=== PATIENT | male | born 1975 | race African-American/Black ===

== ENCOUNTER 2017-05-13 14:23 | Emergency (ER) | payer SELFPAY ==
--- NOTE | 2017-05-13 15:34 | ER Document Report ---
HPI - HPI Patient complains to provider of: diarrhea and nausea Onset: Yesterday Onset/Duration: Gradual, Better Pain Level: 4 Context: 41-year-old male complaining of diarrhea yesterday and 3-4 per day. He did take Imodium yesterday and today and there is more consistencies of stool. No abdominal pain. Mild nausea without vomiting. No fever or chills. Wants a referral to gastroenterology. He also needs a work excuse. Associated Symptoms: None Exacerbated by: Denies Relieved by: Denies Similar symptoms previously: No Recently seen / treated by doctor: No - ROS ROS below otherwise negative: Yes Systems Reviewed and Negative: Yes All other systems reviewed and negative Past Medical History - General Information source: Patient - Social History Smoking Status: Current Every Day Smoker Frequency of alcohol use: None Drug Abuse: None Lives with: Family Family History: Reviewed & Not Pertinent - Medical History Medical History: Negative Surgical Hx: Negative Vertical Provider Document - CONSTITUTIONAL Agree With Documented VS: Yes Exam Limitations: No Limitations General Appearance: No Apparent Distress - INFECTION CONTROL TRAVEL OUTSIDE OF THE [place] IN LAST 30 DAYS: No - HEENT HEENT: Normal ENT Exam, Normocephalic - NECK Neck: Supple - RESPIRATORY Respiratory: Breath Sounds Normal, No Respiratory Distress - CARDIOVASCULAR Cardiovascular: Regular Rate, Regular Rhythm - GI/ABDOMEN Gastrointestinal: Abdomen Soft, Abdomen Non-Tender, No Organomegaly, Normal Bowel Sounds. negative: Hepatomegaly, Spleenomegaly - BACK Back: Normal Inspection. negative: CVA Tenderness-Right, CVA Tenderness-Left - MUSCULOSKELETAL/EXTREMETIES Musculoskeletal/Extremeties: MAEW - NEURO Level of Consciousness: Awake, Alert - DERM Integumentary: Warm, Dry, No Rash Course - Vital Signs Vital signs: Temp Pulse Resp BP Pulse Ox 98.5 F 56 L 18 134/93 H 99 05/13/17 14:46 05/13/17 14:46 05/13/17 14:46 05/13/17 14:46 05/13/17 14:46 Discharge - Discharge Clinical Impression: Nausea Diarrhea Qualifiers: Diarrhea type: infectious Qualified Code(s): A09 - Infectious gastroenteritis and colitis, unspecified Condition: Good Disposition: HOME, SELF-CARE Instructions: Diarrhea, Nonspecific ([facility]) Additional Instructions: no more immodium drink more fluids without caffiene, gatorade, sprite, gingerale to er if symptoms worsen Forms: Return to Work Referrals: LANDY GOODWIN MD [ACTIVE STAFF] - Follow up as needed
[2017-05-13] MEDS ORDERED: ONDANSETRON 4 MG TAB.RAPDIS PO ONE (15:40)
[2017-05-13 16:14] VITALS: BP 127/81
== END 2017-05-13 16:14 | disposition home or self-care (01) ==
LOC: ER 14:23
DX: A09 Infectious gastroenteritis and colitis, unspecified (principal); R11.0 Nausea; F17.200 Nicotine dependence, unspecified, uncomplicated
CPT/HCPCS: 99283; S0119